=== PATIENT | male | born 1945 | race Caucasian/White ===

== ENCOUNTER 2021-02-08 12:44 | Inpatient (IN) | payer MEDICARE ==
[~2021-02-08] VITALS: Ht 175.3 cm; Wt 60.4 kg
[2021-02-08] MEDS ORDERED: MAG6464 MG PO (13:24)
[2021-02-08] MEDS ORDERED: NORVASC10 MG PO (13:25)
[2021-02-08] MEDS ORDERED: METFORMIN HCL1000 MG PO (13:25)
[2021-02-08] MEDS ORDERED: ATORVASTATIN CA40 MG PO (13:26)
[2021-02-08] MEDS ORDERED: POTASSIUM CHLO20 ME1 PO (13:26)
[2021-02-08] MEDS ORDERED: ZOFRAN ODT 4 MG4 MG PO (13:27)
[2021-02-08] MEDS ORDERED: ZESTRIL20 MG PO (13:28)
[2021-02-09 09:01] LABS: RED BLOOD COUNT 3.35 M/UL (4.20-5.50); WHITE BLOOD COUNT 4.7 K/UL (4.5-11.0)
[2021-02-09 09:41] LABS: BUN/CREATININE RATIO 24 (0-10)
--- NOTE | 2021-02-09 21:32 | NUR ---
RECIEVED CALL AT 2128 REPORTING A CRITICAL POTASSIUM OF 2.7. CALLED DR. MARTINEZ AT 2130 TO REPORT IT. WAS TOLD TO REPLACE IT PER PROTOCOL AND THAT I DO NOT HAVE TO CALL HIM TO REPORT IT.
[2021-02-10 04:40] LABS: HEMOGLOBIN 9.2 gm/dl (14.0-17.5); WHITE BLOOD COUNT 4.6 K/UL (4.5-11.0)
[2021-02-10 04:42] LABS: RED BLOOD COUNT 2.79 M/UL (4.20-5.50)
[2021-02-10 05:46] LABS: BUN/CREATININE RATIO 19 (0-10)
--- NOTE | 2021-02-10 06:42 | NUR ---
CRITICAL POTASSIUM OF 2.9 CAME BACK WITH MORNING LABS THAT WERE DRAWN AT 0315. THE SCHEDULED RECHECK IS TO BE DONE AT 0630 THIS MORNING. THE LAST DOSE OF THE POTASSIUM WAS GIVEN AT 0400. CALLED DR. BURRIS TO NOTIFY HIM OF THE CRITICAL LEVEL AND THE SITUATION. NO NEW ORDERS AT THIS TIME.
--- NOTE | 2021-02-10 22:46 | NUR ---
CRITICAL POTASSIUM OF 3.0 CALLED TO ME AT 2242. NOTIFIED DR. BURRIS AT 2245. WILL REPLACE PER PROTOCOL. NO NEW ORDERS AT THIS TIME.
[2021-02-11 05:34] LABS: RED BLOOD COUNT 2.69 M/UL (4.20-5.50); WHITE BLOOD COUNT 4.7 K/UL (4.5-11.0)
[2021-02-11 05:55] LABS: BUN/CREATININE RATIO 15 (0-10)
[2021-02-12 05:49] LABS: BUN/CREATININE RATIO 11 (0-10)
[2021-02-12] MEDS ORDERED: BENTYL 10MG CAP10 MG PO (08:59)
== END 2021-02-12 12:29 | disposition home or self-care (01) | DRG 394 ==
LOC: M/S 12:44
PROVIDERS: Physician Assistant Medical; ADMIT Internal Medicine Infectious Disease
DX: K52.1 Toxic gastroenteritis and colitis (principal); N17.9 Acute kidney failure, unspecified; C18.9 Malignant neoplasm of colon, unspecified; R11.2 Nausea with vomiting, unspecified; Z20.822 Contact with and (suspected) exposure to COVID-19; T45.1X5A Adverse effect of antineoplastic and immunosuppressive drugs, initial encounter; E78.5 Hyperlipidemia, unspecified; E86.0 Dehydration; E87.6 Hypokalemia; E11.9 Type 2 diabetes mellitus without complications; I10 Essential (primary) hypertension; Z90.49 Acquired absence of other specified parts of digestive tract; Z79.4 Long term (current) use of insulin; Z80.9 Family history of malignant neoplasm, unspecified
CPT/HCPCS: 36415; 80048; 80053; 82962; 83735; 84132; 85025; 85027; 96372; 96374; 96375; 96376; C9113; G0378; G0379; J1650; J2405; J2550; J3475; J3480; J7120